=== PATIENT | female | born 1945 | race American Indian/Alaskan Native ===

== ENCOUNTER 2017-03-02 06:02 | Day surgery (SDC) | payer MEDICARE, OTHER ==
[2017-03-02] MEDS ORDERED: TETRACAINE 0.5% OD PRN (06:22)
[2017-03-02] MEDS: AK-Dilate OD SCH ×3 (06:55→07:05)
[2017-03-02] MEDS: MYDRIACYL OD SCH ×3 (06:55→07:05)
[2017-03-02] MEDS: VIGAMOX OD SCH ×3 (06:55→07:05)
--- NOTE | 2017-03-02 07:11 | Anesthesia Consultation ---
Anesthesia Consult and Med Hx Date of service: 03/02/17 - Airway Anesthetic Teeth Evaluation: Good ROM Head & Neck: Inadequate Mental/Hyoid Distance: Adequate Mallampati Class: Class II Intubation Access Assessment: Possibly Difficult - Pulmonary Exam CTA: Yes - Cardiac Exam Cardiac Exam: RRR - Pre-Operative Health Status ASA Pre-Surgery Classification: ASA4 Proposed Anesthetic Plan: MAC - Pulmonary Hx Smoking: Yes (former) Hx Respiratory Symptoms: Yes (H/O bronchitis, very seldom uses inhaler) Hx Sleep Apnea: Yes - Cardiovascular System Hx Hypertension: Yes (x 30 yrs) Hx Coronary Artery Disease: Yes (H/O CHF , Presently breathing at baseline, no orthopnea) - Central Nervous System CVA: Yes (x2, '97, '99 (light stroke) has some right sided numbness) Hx Psychiatric Problems: No - Gastrointestinal Hx Gastroesophageal Reflux Disease: Yes (hiatal hernia, took pepcid 03/02/17) - Endocrine Hx Renal Disease: Yes (stage 4) Hx Insulin Dependent Diabetes: Yes (FBS 138) - Hematic Hx Anemia: Yes - Other Systems Hx Cancer: No Hx Obesity: Yes
--- NOTE | 2017-03-02 07:11 | Anesthesia Day of Surgery ---
Anesthesia Day of Surgery - Day of Surgery Patient Examined: Yes Patient H&P Reviewed: Yes Patient is NPO: Yes
[2017-03-02] MEDS ORDERED: VERSED ONE (07:40)
[2017-03-02] MEDS ORDERED: SUBLIMAZE ONE (07:40)
--- NOTE | 2017-03-02 08:33 | Operative Report ---
Operative Report Operative Report: PATIENT'S NAME: DATE OF : DATE OF SURGERY: 03/02/2017 PREOPERATIVE DIAGNOSIS: Cataract right eye POSTOPERATIVE DIAGNOSIS: Same OPERATIVE PROCEDURE: Phacoemulsification with intraocular lens implantation, right eye SURGEON: Karen Amato M.D. HOST/HOSTESS GROUND SURGEON: Dennis Lens: [id number] 19.0 D ANESTHESIA: Monitored anesthesia care in combination with topical and intracameral anesthesia because of the established specific risk of reflux, arrhythmias, or anxiety attacks associated with ocular manipulation, as well as the difficulty of the assistant professor of physics to manage such potentially catastrophic events while simultaneously attempting to complete the surgical procedure and was deemed necessary for the patient's safety to have an Hospital Fellow present during the procedure whenever possible. An Hospital Fellow was utilized to regulate the intravenous sedation of the patient so the patient was cooperative yet not asleep in order for the patient to successfully maintain fixation of the eye on the operating light of the microscope. COMPLICATIONS: No surgical complications No blood loss. ALLERGIES: No known drug allergies PROGNOSIS: Excellent INDICATIONS FOR SURGERY: The patient is undergoing surgery in the hopes of eliminating or improving these visual difficulties. PROCEDURE: After arriving at the surgery center, the patient was given topical anesthetic and dilating drops, as noted in the record. The patient was then taken into the operating room and given more anesthetic drops. The eyelids , lashes, and lid margins were scrubbed with Betadine solution, and the patient was draped. The Nurse Hospital Fellow administered IV sedation and monitored the patient during the procedure. The eye was then fixated with a 0.12, and a stab incision was made in the peripheral clear cornea into the anterior chamber. This was made on my left side. Viscoelastic was next used to fill the anterior chamber. The eye was once again fixated with the 0.12 forceps and a keratome was used make an incision in clear cornea peripherally on my right hand side temporally. The capsule forceps were used to open the central anterior capsule and then make a continuous round capsulotomy. Hydrodissection was carried out utilizing a cannula and balanced salt solution to delineate the cortical material from the capsule and the nucleus from the cortical material. The phaco tip was introduced into the eye and used to remove the anterior cortical material in the area of the capsulotomy. Then the phaco tip was buried into the nucleus, and a chopping instrument was introduced into the eye and used to provide countertraction in the nucleus between this instrument and the phaco tip fracturing the nucleus. This procedure was repeated multiple times, providing multiple small segments of the lens, and then the phaco tip was used to remove each of these segments. An I/A tip was then used to remove the remaining cortex. The anterior chamber was refilled with viscoelastic. An one-piece, acrylic intraocular lens was then placed into an inserting cartridge. The tip of the inserting cartridge was introduced into the keratome incision and into the anterior chamber. The implant was gently advanced through the cartridge and into the eye, where it unfolded, and both haptics were placed in the capsular bag, where it centered nicely and appeared to be well fixated. After placement of the intraocular lens, the I~and~A handpiece was placed back into the eye and used to remove the viscoelastic, including viscoelastic that was behind the optic of the intraocular lens. The anterior chamber was then filled with balanced salt solution, and hydration of the wound was used to cause swelling of the wound and more appropriate watertight closure. When the wound was found to be firm, the patient was asked to comment on how bright the light was. If there was no light perception at all or if the light was substantially dimmer than during the rest of the surgery, the amount of fluid in the eye was decompressed to lower the intraocular pressure until the patient could see the bright light again. This was done to avoid any damage or decreased blood flow to the optic nerve. MEDICATIONS APPLIED AT END OF SURGERY: One drop of Pred Forte and Vigamox The patient was given a shield to wear at night and was instructed not to rub or push on the eye. DISCHARGE SUMMARY: The patient was released in stable condition. The patient and those with the patient were given a written sheet of postoperative instructions and counseling on any abnormal laboratory studies. The patient is to see us tomorrow for follow-up in the office and is to call immediately for any difficulties. Karen Amato M.D. Date
--- NOTE | 2017-03-02 08:34 | Short Stay Summary ---
Short Stay Documentation Date of service: 03/02/17 - History H&P: obtained from office - Allergies and Medications Current Medications: Allergies No Known Allergies Allergy (Verified 03/01/17 19:14) Home Medications Medication Instructions Recorded Confirmed Last Taken Type Clopidogrel Bisulfate [Plavix] 1 tab PO DAILY 01/28/14 03/01/17 02/28/14 History Esomeprazole Magnesium [Nexium] 1 tab PO DAILY 01/28/14 03/01/17 02/28/14 History Furosemide [Lasix] 1 tab PO DAILY 01/28/14 03/01/17 02/28/14 History Glimepiride [Amaryl] 1 tab PO DAILY 01/28/14 03/01/17 02/28/14 History Hydralazine HCl [Hydralazine HCl] 1 tab PO DAILY 01/28/14 03/01/17 02/28/14 History Indomethacin [Indomethacin] 1 tab PO PRN 01/28/14 03/01/17 01/26/14 History Insulin Aspart [Novolog Flexpen] 1 - 6 units SC PRN 01/28/14 03/01/17 01/27/14 History Insulin Glargine,Hum.rec.anlog 50 units SC HS 01/28/14 03/01/17 02/27/14 History [Lantus] Labetalol [Normodyne TAB] 1 tab PO BID 01/28/14 03/01/17 02/28/14 History Latanoprost [Xalatan 0.005% eye 1 drop OU DAILY 01/28/14 03/01/17 02/28/14 History drops] Lisinopril [Zestril] 1 tab PO DAILY 01/28/14 03/01/17 02/28/14 History NIFEdipine [Procardia Xl] 1 tab PO DAILY 01/28/14 03/01/17 02/28/14 History Simvastatin [Zocor] 80 mg PO DAILY 01/28/14 03/01/17 02/28/14 History cloNIDine [Catapres] 1 tab PO DAILY 01/28/14 03/01/17 02/28/14 History Liraglutide [Victoza 2-Wilbert] 0.6 mg SQ QDAY 03/01/17 03/01/17 Unknown History Active Medications Moxifloxacin HCl (Vigamox) 1 drops OD Q5MIN [facility] Stop: 03/04/17 07:01 Last Admin: 03/02/17 07:05 Dose: 1 drops Phenylephrine HCl (Ak-Dilate) 1 drops OD Q5MIN [facility] Stop: 03/04/17 07:01 Last Admin: 03/02/17 07:05 Dose: 1 drops Prednisolone Acetate (Pred Forte 1%) 1 drops OD QID [facility] Tetracaine HCl (Tetracaine 0.5%) 1 drops OD Q5M PRN PRN Reason: Analgesia Last Admin: 03/02/17 06:55 Dose: 1 drops Tropicamide (Mydriacyl) 1 drops OD Q5MIN [facility] Stop: 03/04/17 07:01 Last Admin: 03/02/17 07:05 Dose: 1 drops - Brief post op/procedure progress note Date of procedure: 03/02/17 Pre-op diagnosis: right cataract Post-op diagnosis: same Procedure: Phacoemulsification with intraocular lens insertion right eye Anesthesia: MAC Surgeon: SKIP VICENTE Estimated blood loss: none Pathology: none Condition: stable - Disposition Condition at discharge: Good Disposition: DISCHARGED TO HOME OR SELFCARE - Discharge Diagnoses (1) Cataract Status: Acute Qualifiers: Cataract type: age-related Age-related cataract type: nuclear Infantile/ juvenile cataract type: I Traumatic cataract type: T Complicated cataract type: C Secondary cataract type: S Laterality: right Qualified Code(s): H25.11 - Age-related nuclear cataract, right eye Short Stay Discharge Plan Follow up with: KAYLA LIM [Primary Care Provider] - 7 Days
[2017-03-02 09:41] VITALS: BP 119/64
[2017-03-02] MEDS ORDERED: PRED FORTE 1% OD SCH (10:00)
--- NOTE | 2017-03-02 12:01 | Post Anesthesia Evaluation ---
- Post Anesthesia Evaluation Patient Participated: Yes Airway Patent: Yes Stable Respiratory Function: Yes Nausea/Vomiting: No Temp > 96.8F: Yes Pain Manageable: Yes Adequeate Hydration: Yes Anesthesia Complications: No Block Receding Appropriately: Not Applicable Patient on Ventilator: No
== END 2017-03-02 09:20 | disposition home or self-care (01) ==
LOC: OR 06:02
DX: E11.36 Type 2 diabetes mellitus with diabetic cataract (principal); E11.22 Type 2 diabetes mellitus with diabetic chronic kidney disease; I12.9 Hypertensive chronic kidney disease with stage 1 through stage 4 chronic kidney disease, or unspecified chronic kidney disease; N18.4 Chronic kidney disease, stage 4 (severe); M19.90 Unspecified osteoarthritis, unspecified site; I25.10 Atherosclerotic heart disease of native coronary artery without angina pectoris; K21.9 Gastro-esophageal reflux disease without esophagitis; Z86.73 Personal history of transient ischemic attack (TIA), and cerebral infarction without residual deficits; Z87.891 Personal history of nicotine dependence; Z79.4 Long term (current) use of insulin; Z79.899 Other long term (current) drug therapy
CPT/HCPCS: 66984; 82962; J2250; J3010; V2632

== ENCOUNTER 2017-07-20 08:42 | Day surgery (SDC) | payer MEDICARE, OTHER ==
[~2017-07-20 08:42] MED LIST: TETRACAINE 0.5% OS PRN
[2017-07-20] MEDS ORDERED: D50W (25GM) Syringe IV ONE (10:25)
[2017-07-20] MEDS: VIGAMOX OS SCH ×3 (10:35→10:45)
[2017-07-20] MEDS: MYDRIACYL OS SCH ×3 (10:35→10:45)
[2017-07-20] MEDS: AK-Dilate OS SCH ×3 (10:35→10:45)
--- NOTE | 2017-07-20 10:36 | Anesthesia Consultation ---
Anesthesia Consult and Med Hx Date of service: 07/20/17 - Airway Anesthetic Teeth Evaluation: Good ROM Head & Neck: Adequate Mental/Hyoid Distance: Adequate Mallampati Class: Class II Intubation Access Assessment: Probably Good - Pulmonary Exam CTA: Yes - Cardiac Exam Cardiac Exam: RRR - Pre-Operative Health Status ASA Pre-Surgery Classification: ASA3 Proposed Anesthetic Plan: MAC - Pulmonary Hx Smoking: Yes (former) Hx Respiratory Symptoms: Yes (H/O bronchitis, very seldom uses inhaler) Hx Sleep Apnea: Yes - Cardiovascular System Hx Hypertension: Yes (x 30 yrs) Hx Coronary Artery Disease: Yes (H/O CHF , Presently breathing at baseline, no orthopnea) - Central Nervous System CVA: Yes (x2, '97, '99 (light stroke) has some right sided numbness) Hx Psychiatric Problems: No - Gastrointestinal Hx Gastroesophageal Reflux Disease: Yes (hiatal hernia, took pepcid 03/02/17) - Endocrine Hx Renal Disease: Yes (stage 4) Hx Insulin Dependent Diabetes: Yes (FBS 138) - Hematic Hx Anemia: Yes - Other Systems Hx Cancer: No Hx Obesity: Yes
--- NOTE | 2017-07-20 10:36 | Anesthesia Day of Surgery ---
Anesthesia Day of Surgery - Day of Surgery Patient Examined: Yes Patient H&P Reviewed: Yes Patient is NPO: Yes Beta Blockers: Yes
[2017-07-20] MEDS ORDERED: SUBLIMAZE ONE (10:44)
[2017-07-20] MEDS ORDERED: VERSED ONE (10:59)
--- NOTE | 2017-07-20 11:32 | Operative Report ---
Operative Report Operative Report: PATIENT'S NAME: DATE OF : DATE OF SURGERY: 07/20/2017 PREOPERATIVE DIAGNOSIS: Cataract left eye POSTOPERATIVE DIAGNOSIS: Same OPERATIVE PROCEDURE: Phacoemulsification with intraocular lens implantation, left eye SURGEON: Karen Amato M.D. SIX PACK PACKER SURGEON: Dennis Lens: [id number] 19.5 D ANESTHESIA: Monitored anesthesia care in combination with topical and intracameral anesthesia because of the established specific risk of reflux, arrhythmias, or anxiety attacks associated with ocular manipulation, as well as the difficulty of the utility locator to manage such potentially catastrophic events while simultaneously attempting to complete the surgical procedure and was deemed necessary for the patient's safety to have an Conservation Or Heritage Architect present during the procedure whenever possible. An Conservation Or Heritage Architect was utilized to regulate the intravenous sedation of the patient so the patient was cooperative yet not asleep in order for the patient to successfully maintain fixation of the eye on the operating light of the microscope. COMPLICATIONS: No surgical complications No blood loss. ALLERGIES: No known drug allergies PROGNOSIS: Excellent INDICATIONS FOR SURGERY: The patient is undergoing surgery in the hopes of eliminating or improving these visual difficulties. PROCEDURE: After arriving at the surgery center, the patient was given topical anesthetic and dilating drops, as noted in the record. The patient was then taken into the operating room and given more anesthetic drops. The eyelids , lashes, and lid margins were scrubbed with Betadine solution, and the patient was draped. The Nurse Conservation Or Heritage Architect administered IV sedation and monitored the patient during the procedure. The eye was then fixated with a 0.12, and a stab incision was made in the peripheral clear cornea into the anterior chamber. This was made on my left side. Viscoelastic was next used to fill the anterior chamber. The eye was once again fixated with the 0.12 forceps and a keratome was used make an incision in clear cornea peripherally on my right hand side temporally. The capsule forceps were used to open the central anterior capsule and then make a continuous round capsulotomy. Hydrodissection was carried out utilizing a cannula and balanced salt solution to delineate the cortical material from the capsule and the nucleus from the cortical material. The phaco tip was introduced into the eye and used to remove the anterior cortical material in the area of the capsulotomy. Then the phaco tip was buried into the nucleus, and a chopping instrument was introduced into the eye and used to provide countertraction in the nucleus between this instrument and the phaco tip fracturing the nucleus. This procedure was repeated multiple times, providing multiple small segments of the lens, and then the phaco tip was used to remove each of these segments. An I/A tip was then used to remove the remaining cortex. The anterior chamber was refilled with viscoelastic. An one-piece, acrylic intraocular lens was then placed into an inserting cartridge. The tip of the inserting cartridge was introduced into the keratome incision and into the anterior chamber. The implant was gently advanced through the cartridge and into the eye, where it unfolded, and both haptics were placed in the capsular bag, where it centered nicely and appeared to be well fixated. After placement of the intraocular lens, the I~and~A handpiece was placed back into the eye and used to remove the viscoelastic, including viscoelastic that was behind the optic of the intraocular lens. The anterior chamber was then filled with balanced salt solution, and hydration of the wound was used to cause swelling of the wound and more appropriate watertight closure. When the wound was found to be firm, the patient was asked to comment on how bright the light was. If there was no light perception at all or if the light was substantially dimmer than during the rest of the surgery, the amount of fluid in the eye was decompressed to lower the intraocular pressure until the patient could see the bright light again. This was done to avoid any damage or decreased blood flow to the optic nerve. MEDICATIONS APPLIED AT END OF SURGERY: One drop of Pred Forte and Vigamox The patient was given a shield to wear at night and was instructed not to rub or push on the eye. DISCHARGE SUMMARY: The patient was released in stable condition. The patient and those with the patient were given a written sheet of postoperative instructions and counseling on any abnormal laboratory studies. The patient is to see us tomorrow for follow-up in the office and is to call immediately for any difficulties. Karen Amato M.D. Date
--- NOTE | 2017-07-20 11:33 | Short Stay Summary ---
Short Stay Documentation Date of service: 07/20/17 - History Principal diagnosis: cataract left eye H&P: obtained from office - Allergies and Medications Current Medications: Allergies No Known Allergies Allergy (Verified 07/18/17 18:34) Home Medications Medication Instructions Recorded Confirmed Last Taken Type Clopidogrel Bisulfate [Plavix] 1 tab PO DAILY 01/28/14 07/20/17 07/19/17 History Esomeprazole Magnesium [Nexium] 1 tab PO DAILY 01/28/14 07/20/17 07/20/17 07:30 History Furosemide [Lasix] 1 tab PO DAILY 01/28/14 07/20/17 07/19/17 History Glimepiride [Amaryl] 1 tab PO DAILY 01/28/14 07/20/17 07/19/17 History Hydralazine HCl [Hydralazine HCl] 1 tab PO DAILY 01/28/14 07/20/17 07/20/17 07: 30 History Indomethacin [Indomethacin] 1 tab PO PRN 01/28/14 07/20/17 07/06/17 History Insulin Aspart [Novolog Flexpen] 1 - 6 units SC PRN 01/28/14 07/20/17 07/19/17 13:00 History 4 units Insulin Glargine,Hum.rec.anlog 50 units SC HS 01/28/14 07/20/17 07/19/17 23:00 History [Lantus] 35 units Labetalol [Normodyne TAB] 1 tab PO BID 01/28/14 07/20/17 07/20/17 07:30 History Latanoprost [Xalatan 0.005% eye 1 drop OU DAILY 01/28/14 07/20/17 07/19/17 22: 00 History drops] Lisinopril [Zestril] 1 tab PO DAILY 01/28/14 07/20/17 07/20/17 07:30 History NIFEdipine [Procardia Xl] 1 tab PO DAILY 01/28/14 07/20/17 07/20/17 07:30 History Simvastatin [Zocor] 80 mg PO DAILY 01/28/14 07/20/17 07/19/17 History cloNIDine [Catapres] 1 tab PO DAILY 01/28/14 07/20/17 07/20/17 07:30 History Liraglutide [Victoza 2-Wilbert] 0.6 mg SQ QDAY 03/01/17 07/20/17 07/19/17 22:00 History Active Medications Moxifloxacin HCl (Vigamox) 1 drops OS Q5MIN [facility] Stop: 07/22/17 06:01 Last Admin: 07/20/17 10:45 Dose: 1 drops Phenylephrine HCl (Ak-Dilate) 1 drops OS Q5MIN [facility] Stop: 07/22/17 06:01 Last Admin: 07/20/17 10:45 Dose: 1 drops Prednisolone Acetate (Pred Forte 1%) 1 drops OS QID [facility] Tetracaine HCl (Tetracaine 0.5%) 1 drops OS Q5M PRN PRN Reason: Analgesia Stop: 07/20/17 23:59 Last Admin: 07/20/17 10:30 Dose: 1 drops Tropicamide (Mydriacyl) 1 drops OS Q5MIN [facility] Stop: 07/22/17 06:01 Last Admin: 07/20/17 10:45 Dose: 1 drops - Brief post op/procedure progress note Date of procedure: 07/20/17 Pre-op diagnosis: cataract left eye Post-op diagnosis: same Procedure: Phacoemulsification with intraocular lens insertion left eye Anesthesia: MAC Surgeon: SKIP VICENTE Estimated blood loss: none Pathology: none Condition: stable - Disposition Condition at discharge: Good Disposition: DC-01 TO HOME OR SELFCARE - Discharge Diagnoses (1) Cataract Status: Resolved Qualifiers: Cataract type: age-related Age-related cataract type: nuclear Infantile/ juvenile cataract type: I Traumatic cataract type: T Complicated cataract type: C Secondary cataract type: S Laterality: left Qualified Code(s): H25.12 - Age-related nuclear cataract, left eye Short Stay Discharge Plan Additional Instructions: FOLLOW SURGEON INSTRUCTION SHEETS. Follow up with: KAYLA LIM [Primary Care Provider] - 7 Days Forms: [facility] [place] [facility]
[2017-07-20] MEDS ORDERED: PRED FORTE 1% OS SCH (11:35)
[2017-07-20 11:51] VITALS: BP 131/58
== END 2017-07-20 12:15 | disposition home or self-care (01) ==
LOC: OR 08:42
DX: H25.12 Age-related nuclear cataract, left eye (principal); E10.36 Type 1 diabetes mellitus with diabetic cataract; I13.0 Hypertensive heart and chronic kidney disease with heart failure and stage 1 through stage 4 chronic kidney disease, or unspecified chronic kidney disease; E10.22 Type 1 diabetes mellitus with diabetic chronic kidney disease; N18.4 Chronic kidney disease, stage 4 (severe); I50.9 Heart failure, unspecified; K21.9 Gastro-esophageal reflux disease without esophagitis; M19.90 Unspecified osteoarthritis, unspecified site; E66.9 Obesity, unspecified; Z86.73 Personal history of transient ischemic attack (TIA), and cerebral infarction without residual deficits; Z87.891 Personal history of nicotine dependence; Z86.2 Personal history of diseases of the blood and blood-forming organs and certain disorders involving the immune mechanism; Z79.4 Long term (current) use of insulin
CPT/HCPCS: 66984; 82962; J2250; J3010; V2632

== ENCOUNTER 2017-10-10 13:13 | Outpatient (CLI) | payer MEDICARE, OTHER ==
[2017-10-10 13:37] LABS: Hematocrit 32.9 % (30.3-42.9); Hemoglobin 10.7 gm/dl (10.1-14.3); Mean Corpuscular HGB Conc 33 % (30-34); Mean Corpuscular Hemoglobin 30 pg (28-32); Mean Corpuscular Volume 92 fl (79-97); Platelet Count 324 K/mm3 (140-440); Red Blood Count 3.58 M/mm3 (3.65-5.03); Red Cell Distribution Width 16.7 % (13.2-15.2)
[2017-10-10 13:45] LABS: Creatinine,Urine 127.6 mg/dL (0.1-20.0)
[2017-10-10 13:58] LABS: Microalbumin/Creatinine Ratio 1916.1 ug/mg
[2017-10-10 13:59] LABS: Calcium 9.6 mg/dL (8.4-10.2)
== END 2017-10-10 13:14 | disposition home or self-care (01) ==
LOC: LAB 13:13
DX: I13.0 Hypertensive heart and chronic kidney disease with heart failure and stage 1 through stage 4 chronic kidney disease, or unspecified chronic kidney disease (principal); I50.9 Heart failure, unspecified; N18.4 Chronic kidney disease, stage 4 (severe); E11.22 Type 2 diabetes mellitus with diabetic chronic kidney disease; I25.10 Atherosclerotic heart disease of native coronary artery without angina pectoris; E78.00 Pure hypercholesterolemia, unspecified; Z87.891 Personal history of nicotine dependence
CPT/HCPCS: 36415; 80048; 82040; 82043; 83970; 84100; 85027

== ENCOUNTER 2018-01-16 12:48 | Outpatient (CLI) | payer MEDICARE, OTHER ==
[2018-01-16 13:13] LABS: Hematocrit 32.5 % (30.3-42.9); Hemoglobin 10.2 gm/dl (10.1-14.3); Mean Corpuscular HGB Conc 32 % (30-34); Mean Corpuscular Hemoglobin 28 pg (28-32); Mean Corpuscular Volume 90 fl (79-97); Platelet Count 307 K/mm3 (140-440); Red Blood Count 3.61 M/mm3 (3.65-5.03); Red Cell Distribution Width 17.5 % (13.2-15.2)
[2018-01-16 13:30] LABS: Albumin 4.1 g/dL (3.9-5); Calcium 9.5 mg/dL (8.4-10.2); Microalbumin/Creatinine Ratio 2173.5 ug/mg
== END 2018-01-16 12:49 | disposition home or self-care (01) ==
LOC: LAB 12:48
DX: I13.0 Hypertensive heart and chronic kidney disease with heart failure and stage 1 through stage 4 chronic kidney disease, or unspecified chronic kidney disease (principal); I50.9 Heart failure, unspecified; N18.4 Chronic kidney disease, stage 4 (severe); E11.22 Type 2 diabetes mellitus with diabetic chronic kidney disease
CPT/HCPCS: 36415; 80048; 82040; 82043; 83970; 84100; 85027

== ENCOUNTER 2018-03-21 13:17 | Outpatient (CLI) | payer MEDICARE, OTHER ==
[2018-03-21 13:48] LABS: Creatinine,Urine 112.6 mg/dL (0.1-20.0)
[2018-03-21 14:04] LABS: Albumin 4.1 g/dL (3.9-5); Calcium 9.2 mg/dL (8.4-10.2)
== END 2018-03-21 13:18 | disposition home or self-care (01) ==
LOC: LAB 13:17
DX: I13.0 Hypertensive heart and chronic kidney disease with heart failure and stage 1 through stage 4 chronic kidney disease, or unspecified chronic kidney disease (principal); E11.22 Type 2 diabetes mellitus with diabetic chronic kidney disease; N18.4 Chronic kidney disease, stage 4 (severe); I50.9 Heart failure, unspecified; D63.1 Anemia in chronic kidney disease; N25.81 Secondary hyperparathyroidism of renal origin; R60.0 Localized edema; E55.9 Vitamin D deficiency, unspecified; E78.5 Hyperlipidemia, unspecified; R80.0 Isolated proteinuria; I25.10 Atherosclerotic heart disease of native coronary artery without angina pectoris; K21.9 Gastro-esophageal reflux disease without esophagitis; G47.30 Sleep apnea, unspecified; E07.9 Disorder of thyroid, unspecified; Z90.710 Acquired absence of both cervix and uterus; Z87.891 Personal history of nicotine dependence
CPT/HCPCS: 36415; 80048; 82040; 82043; 83970; 84100

== ENCOUNTER 2018-07-02 13:05 | Outpatient (CLI) | payer MEDICARE, OTHER ==
[2018-07-02 13:35] LABS: Hematocrit 29.7 % (30.3-42.9); Hemoglobin 9.3 gm/dl (10.1-14.3); Mean Corpuscular HGB Conc 31 % (30-34); Mean Corpuscular Hemoglobin 30 pg (28-32); Mean Corpuscular Volume 96 fl (79-97); Platelet Count 243 K/mm3 (140-440); Red Cell Distribution Width 16.2 % (13.2-15.2)
[2018-07-02 14:08] LABS: Calcium 9.7 mg/dL (8.4-10.2)
== END 2018-07-02 13:06 | disposition home or self-care (01) ==
LOC: LAB 13:05
PROVIDERS: ATTEND Internal Medicine
DX: E11.22 Type 2 diabetes mellitus with diabetic chronic kidney disease (principal); I11.0 Hypertensive heart disease with heart failure; I50.9 Heart failure, unspecified; R80.0 Isolated proteinuria; D63.1 Anemia in chronic kidney disease; N25.81 Secondary hyperparathyroidism of renal origin; E78.5 Hyperlipidemia, unspecified; E55.9 Vitamin D deficiency, unspecified; I73.9 Peripheral vascular disease, unspecified; R60.0 Localized edema; E87.5 Hyperkalemia; E78.00 Pure hypercholesterolemia, unspecified; K21.9 Gastro-esophageal reflux disease without esophagitis; E66.9 Obesity, unspecified; M10.9 Gout, unspecified; Z90.49 Acquired absence of other specified parts of digestive tract; Z87.891 Personal history of nicotine dependence
CPT/HCPCS: 36415; 80048; 82040; 84100; 85027